=== PATIENT | female | born 1960 | race American Indian/Alaskan Native ===

== ENCOUNTER 2022-09-26 05:36 | Day surgery (SDC) | payer MEDICAID ==
[~2022-09-26 05:36] MED LIST: Clindamycin in 0.9 % Sod Chlor 600 MG in Premix Bag 1 BAG IV ONE; Indocyanine Green 25 MG SDV IV ONE; Ropivacaine 23 ML, dexAMETHasone 8 MG, EPINEPHrine 0.4 MG, Sodium Chloride 0.9% 54.6 ML NERVRT SCH; Sodium Chloride 0.9% 1,000 ML IV SCH; ceFAZolin 2 GM in Sodium Chloride 0.9% 50 ML IV ONE; metroNIDAZOLE/Normal Saline 500 MG in Premix Bag 1 BAG IV ONE
[2022-09-26] MEDS ORDERED: Indocyanine Green 25 MG SDV INJECT ONE (06:45)
[2022-09-26] MEDS ORDERED: Sodium Chloride 0.9% 1,000 ML IV SCH (06:45)
[2022-09-26] MEDS ORDERED: Bupivacaine 0.5% 50 ML MDV ONE (06:49)
[2022-09-26] MEDS ORDERED: Lidocaine 1% with EPINEPHrine 1:100,000 50 ML MDV ONE (06:50)
[2022-09-26 07:05] LABS: ESTIMATED GFR 99 mL/min (>60)
[2022-09-26] MEDS ORDERED: Succinylcholine 200 MG/10 ML MDV ONE (07:07)
[2022-09-26] MEDS ORDERED: fentaNYL 250 MCG/5 ML SDV ONE (07:07)
[2022-09-26] MEDS ORDERED: Rocuronium 50 MG/5 ML Vial ONE (07:07)
[2022-09-26] MEDS ORDERED: Propofol 200 MG/20 ML SDV ONE (07:07)
[2022-09-26] MEDS ORDERED: Dexamethasone 4 MG/ML SDV ONE (07:07)
[2022-09-26] MEDS ORDERED: Neostigmine Methylsulfate 1 MG/ML 5 ML Syringe ONE (07:07)
[2022-09-26] MEDS ORDERED: Ondansetron 4 MG/2 ML SDV ONE (07:07)
[2022-09-26] MEDS ORDERED: Glycopyrrolate 0.2 MG/ML 5 ML MDV ONE (07:07)
[2022-09-26] MEDS ORDERED: Ropivacaine 23 ML, dexAMETHasone 8 MG, EPINEPHrine 0.4 MG, Sodium Chloride 0.9% 54.6 ML NERVRT SCH ×4 (07:30)
[2022-09-26] MEDS ORDERED: Clindamycin in 0.9 % Sod Chlor 600 MG in Premix Bag 1 BAG IV ONE ×2 (08:00)
[2022-09-26] MEDS ORDERED: metroNIDAZOLE/Normal Saline 500 MG in Premix Bag 1 BAG IV ONE (08:00)
[2022-09-26] MEDS ORDERED: ceFAZolin 2 GM in Sodium Chloride 0.9% 50 ML IV ONE (08:00)
[2022-09-26] MEDS ORDERED: Scopolamine 1.5 MG Transdermal Patch ONE (08:02)
[2022-09-26] MEDS ORDERED: Sugammadex Sodium 200 MG/2 ML VIAL ONE (08:29)
[2022-09-26] MEDS ORDERED: Acetaminophen/HYDROcodone 325-5 MG Tab PO ONE (09:38)
[2022-09-26] MEDS ORDERED: Albuterol/Ipratropium 3.0-0.5 MG/3 ML Neb Soln NEB ONE (11:07)
[2022-09-26] MEDS ORDERED: HYDROmorphone 1 MG/ML Syringe IVPUSH ONE (11:21)
[2022-09-26] MEDS ORDERED: Scopolamine 1.5 MG Transdermal Patch TOP ONE (12:14)
[2022-09-26] MEDS ORDERED: Ondansetron 4 MG/2 ML SDV IVPUSH ONE (12:15)
[2022-09-26] MEDS ORDERED: Ondansetron 4 MG Tab.DIS PO ONE (12:35)
[2022-09-26] MEDS ORDERED: VERIFY SCOP PATCH TOP SCH (13:00)
== END 2022-09-26 13:30 | disposition home or self-care (01) ==
LOC: JP.SDS 05:36
PROVIDERS: ATTEND Surgery
DX: K80.10 Calculus of gallbladder with chronic cholecystitis without obstruction (principal); J44.9 Chronic obstructive pulmonary disease, unspecified; K21.9 Gastro-esophageal reflux disease without esophagitis; F17.200 Nicotine dependence, unspecified, uncomplicated
CPT/HCPCS: 36415; 47562; 80053; 85027; A9270; J0171; J0330; J1100; J1170; J2405; J2704; J2710; J2795; J3010; J3490; J7030; Q0162; 88304; J7620